=== PATIENT | female | born 1980 | race African-American/Black ===

== ENCOUNTER 2016-10-16 11:01 | Emergency (ER) | payer OTHER ==
[~2016-10-16 11:01] MED LIST: AMOXICILLIN PO; BACTRIM DS TABL1 TA1 PO; BENZONATATE PO; CIPRODEX OTIC7.5 ML OT; FLONASE16 GM; NAPROSYN250 M1 PO; PRENATAL VITAMI1 TA3 PO; ZITHROMAX1 G/PKT PO
== END 2016-10-16 11:03 | disposition home or self-care (01) ==
LOC: CFTX 11:01
DX: K64.4 Residual hemorrhoidal skin tags (principal)
CPT/HCPCS: 99282